=== PATIENT | female | born 1985 | race African-American/Black ===

== ENCOUNTER 2016-07-26 13:37 | Emergency (ER) | payer OTHER ==
[~2016-07-26] VITALS: Ht 170.2 cm; Wt 89.8 kg
[2016-07-26 13:38] VITALS: BP 143/99
[2016-07-26] MEDS ORDERED: KEFLEX500 MG PO (14:13)
== END 2016-07-26 14:25 | disposition home or self-care (01) ==
LOC: ER 13:37
DX: L03.032 Cellulitis of left toe (principal); R20.2 Paresthesia of skin; Z88.1 Allergy status to other antibiotic agents; Z88.8 Allergy status to other drugs, medicaments and biological substances; F17.210 Nicotine dependence, cigarettes, uncomplicated; F10.99 Alcohol use, unspecified with unspecified alcohol-induced disorder

== ENCOUNTER 2018-02-11 17:59 | Emergency (ER) | payer OTHER ==
[~2018-02-11] VITALS: Ht 170.2 cm; Wt 80.7 kg
[~2018-02-11 17:59] MED LIST: KEFLEX500 MG PO
[2018-02-11] MEDS ORDERED: CYCLOBENZAPRINE5 MG PO (20:08)
[2018-02-11] MEDS ORDERED: NORCO 5-325 TA1 EACH PO (20:08)
[2018-02-11 20:24] VITALS: BP 113/69
== END 2018-02-11 20:24 | disposition home or self-care (01) ==
LOC: ER 17:59
DX: M54.5 Low back pain (principal); Z87.891 Personal history of nicotine dependence; Z88.1 Allergy status to other antibiotic agents; Z88.8 Allergy status to other drugs, medicaments and biological substances; V49.60XA Unspecified car occupant injured in collision with unspecified motor vehicles in traffic accident, initial encounter; Y93.89 Activity, other specified; Y92.89 Other specified places as the place of occurrence of the external cause; Y99.8 Other external cause status

== ENCOUNTER 2019-01-02 15:44 | Emergency (ER) | payer OTHER ==
[~2019-01-02] VITALS: Ht 170.2 cm; Wt 80.7 kg
[~2019-01-02 15:44] MED LIST changes: +CYCLOBENZAPRINE5 MG PO; +NORCO 5-325 TA1 EACH PO
[2019-01-02 16:19] LABS: URINE BILIRUBIN NEGATIVE (Negative); URINE BLOOD TRACE (Negative); URINE CLARITY CLEAR; URINE COLOR YELLOW; URINE GLUCOSE-RANDOM* NEGATIVE (Negative); URINE KETONES NEGATIVE (Negative); URINE LEUKOCYTES-REFLEX NEGATIVE (Negative); URINE NITRITE-REFLEX NEGATIVE (Negative); URINE PROTEIN (DIPSTICK) NEGATIVE (Negative); URINE UROBILINOGEN 0.2 E.U./dl (0.2-1.0)
[2019-01-02 16:48] LABS: ABSOLUTE NEUTROPHILS 2.3 thou/uL (1.4-8.2); BASOPHILS 0.4 % (0.0-2.0); EOSINOPHILS 4.2 % (0.0-3.0); HEMATOCRIT 38.6 % (37.0-47.0); HEMOGLOBIN 13.3 gm/dL (12.0-15.0); LYMPHOCYTES 44.9 % (24.0-44.0); MCH 32.6 pg (26.0-34.0); MCHC 34.5 g/dL (28.0-37.0); MCV 94.7 fL (80.0-100.0); MONOCYTES 10.1 % (1.0-8.0); PLATELET COUNT 326 thou/uL (150-400); POLYS 40.4 % (36.0-66.0); RBC 4.08 mil/uL (4.20-5.00); RDW 12.1 % (10.5-14.5); WBC 5.7 thou/uL (4.0-11.0)
[2019-01-02 16:55] LABS: CALCIUM 8.9 mg/dL (8.5-10.1); CREATININE 0.6 mg/dL (0.6-1.0); POTASSIUM 3.8 mmol/L (3.5-5.1)
[2019-01-02] MEDS ORDERED: MOBIC15 MG PO (18:21)
[2019-01-02] MEDS ORDERED: TIZANIDINE HCL4 MG PO (18:21)
[2019-01-02 18:30] VITALS: BP 114/65
== END 2019-01-02 18:30 | disposition home or self-care (01) ==
LOC: ER 15:44
PROVIDERS: Emergency Medicine; Physician Assistant
DX: S39.011A Strain of muscle, fascia and tendon of abdomen, initial encounter (principal); Z87.891 Personal history of nicotine dependence; Z88.1 Allergy status to other antibiotic agents; Z88.8 Allergy status to other drugs, medicaments and biological substances; X50.0XXA Overexertion from strenuous movement or load, initial encounter; Y92.89 Other specified places as the place of occurrence of the external cause; Y93.89 Activity, other specified; Y99.8 Other external cause status